=== PATIENT | female | born 1945 | race Caucasian/White ===

== ENCOUNTER → 2020-05-01 17:34 | Outpatient (CLI) | payer BC ==
[2009-12-04 06:53] VITALS: BMI 26.6
[2020-05-01 19:46] LABS: BASOPHILS 0.3 % (0-2); EOSINOPHILS 5.7 % (0-7); HEMATOCRIT 43.8 % (36.0-48.0); HEMOGLOBIN 14.1 g/dL (12-16); IMMATURE GRANULOCYTES 0.3 % (0-5); LYMPHOCYTES 28.1 % (15-50); MCH 28.1 pg (26.0-34.0); MCHC 32.2 g/dL (31.0-37.0); MCV 87.3 fL (80.0-100.0); MEAN PLATELET VOLUME 10.2 fL (7.4-10.4); MONOCYTES 7.5 % (2-11); NEUTROPHIL ABS# 6.61 10x3/uL (1.56-6.13); NEUTROPHILS 58.1 % (40-80); RBC 5.02 10x6/uL (4.00-5.40); RDW 13.2 % (11.5-14.5); WBC 11.4 10x3/uL (4.8-10.8)
[2020-05-01 19:54] LABS: PLATELET COUNT 513 10x3/uL (130-400)
[2020-05-01 20:01] LABS: ALBUMIN 3.7 g/dL (3.4-5.0); ANION GAP 18.3 mmol/L (8-16); BILIRUBIN - TOTAL 0.26 mg/dL (0.2-1.3); CALCIUM 9.3 mg/dL (8.5-10.1); CARBON DIOXIDE 24.6 mmol/L (21.0-32.0); CREATININE - SERUM 0.9 mg/dL (0.6-1.3); POTASSIUM - SERUM 5.9 mmol/L (3.5-5.1); PROTEIN - SERUM 7.2 g/dL (6.4-8.2)
== END | disposition home or self-care (01) ==
LOC: D.LABREF 17:34
PROVIDERS: ATTEND Family Medicine
DX: I10 Essential (primary) hypertension (principal); Z20.822 Contact with and (suspected) exposure to COVID-19

== ENCOUNTER → 2020-05-04 14:05 | Outpatient (CLI) | payer MEDICARE, OTHER ==
[2009-12-04 06:53] VITALS: BMI 26.6
[2020-05-04 14:13] LABS: BASOPHILS 0.3 % (0-2); EOSINOPHILS 6.9 % (0-7); HEMATOCRIT 40.1 % (36.0-48.0); HEMOGLOBIN 12.7 g/dL (12-16); IMMATURE GRANULOCYTES 0.3 % (0-5); LYMPHOCYTE ABS# 1.76 10x3/uL (1.18-3.74); LYMPHOCYTES 16.8 % (15-50); MCH 27.7 pg (26.0-34.0); MCHC 31.7 g/dL (31.0-37.0); MCV 87.6 fL (80.0-100.0); MEAN PLATELET VOLUME 10.2 fL (7.4-10.4); MONOCYTES 8.2 % (2-11); NEUTROPHIL ABS# 7.05 10x3/uL (1.56-6.13); NEUTROPHILS 67.5 % (40-80); RBC 4.58 10x6/uL (4.00-5.40); RDW 13.3 % (11.5-14.5); WBC 10.5 10x3/uL (4.8-10.8)
[2020-05-04 14:25] LABS: PLATELET COUNT 380 10x3/uL (130-400)
== END | disposition home or self-care (01) ==
LOC: D.LABREF 14:05
PROVIDERS: ATTEND Family Medicine
DX: Z51.81 Encounter for therapeutic drug level monitoring (principal)

== ENCOUNTER → 2020-05-08 14:00 | Outpatient (CLI) | payer MEDICARE, OTHER ==
[2009-12-04 06:53] VITALS: BMI 26.6
== END | disposition home or self-care (01) ==
LOC: D.LABREF 14:00
PROVIDERS: ATTEND Family Medicine
DX: Z51.81 Encounter for therapeutic drug level monitoring (principal)